=== PATIENT | female | born 1960 | race African-American/Black ===

== ENCOUNTER 2020-02-01 04:58 | Day surgery (SDC) | payer OTHER ==
[2020-01-30 14:21] VITALS: BMI 31.2
[2020-02-01 11:01] VITALS: TEMP 98.7
[2020-02-01 14:28] VITALS: BP 112/52; PULSE 63
--- NOTE | 2020-02-02 13:01 | PATH ---
Surgical Pathology Report Patient Name: ANILA GOLDMAN [facility]. Rec. #: [id number] /Age/Gender: 1960 (Age: 59) / F Account: [id number] Location: [facility]SU-ENDOSCOPY Taken: 02/01/2020 Received: 02/01/2020 Reported: 02/02/2020 Physicians: Long Narayanan D.O. Specimen(s) Received A: PROXIMAL DESCENDING COLON POLYP B: TRANSVERSE COLON POLYP C: RIGHT COLON POLYP D: RECTAL SIGMOID POLYP Clinical History Screening Postoperative diagnosis: Colon polyps, hemorrhoids Final Diagnosis A. PROXIMAL DESCENDING COLON, POLYP, POLYPECTOMY: TUBULAR ADENOMA. B. TRANSVERSE COLON, POLYP, POLYPECTOMY: TUBULAR ADENOMA. C. COLON, RIGHT, POLYP, BIOPSY: TUBULAR ADENOMA. D. RECTOSIGMOID COLON, POLYP, BIOPSY: HYPERPLASTIC POLYP. Electronically Signed Joanne Manuel M.D. Gross Description A. Received in formalin, labeled "proximal descending colon" is a webber, irregular portion of soft tissue measuring 0.6 cm. in greatest dimension. The specimen is submitted in toto in one cassette. B. Received in formalin, labeled "transverse colon polyp" is a webber, irregular portion of soft tissue measuring 0.4 cm. in greatest dimension. The specimen is submitted in toto in one cassette. C. Received in formalin, labeled "right colon polyp biopsy" is a webber, irregular portion of soft tissue measuring 0.4 cm. in greatest dimension. The specimen is submitted in toto in one cassette. D. Received in formalin, labeled "rectosigmoid polyp biopsy" are 2 webber, irregular portions of soft tissue measuring 0.2 and 0.4 cm. in greatest dimension. The specimens are submitted in toto in one cassette. DL/02/01/2020 saudi/02/01/2020
== END 2020-02-01 11:50 | disposition home or self-care (01) ==
LOC: JASU-ENDO 04:58
PROVIDERS: ATTEND Internal Medicine Gastroenterology
PROC: 0DBN8ZX Excision of Sigmoid Colon, Via Natural or Artificial Opening Endoscopic, Diagnostic (ICD-10-PCS; 2020-02-01)
PROC: 0DBM8ZX Excision of Descending Colon, Via Natural or Artificial Opening Endoscopic, Diagnostic (ICD-10-PCS; 2020-02-01)
PROC: 0DBL8ZX Excision of Transverse Colon, Via Natural or Artificial Opening Endoscopic, Diagnostic (ICD-10-PCS; 2020-02-01)
PROC: 0DBF8ZX Excision of Right Large Intestine, Via Natural or Artificial Opening Endoscopic, Diagnostic (ICD-10-PCS; principal; 2020-02-01 10:00)
DX: Z12.11 Encounter for screening for malignant neoplasm of colon (principal); K64.8 Other hemorrhoids; D12.4 Benign neoplasm of descending colon; D12.7 Benign neoplasm of rectosigmoid junction; D12.3 Benign neoplasm of transverse colon
CPT/HCPCS: 88305-TC

== ENCOUNTER 2020-06-25 05:33 | Day surgery (SDC) | payer OTHER ==
[2020-06-25 11:37] VITALS: TEMP 97.8; BMI 30.9
[2020-06-25 14:04] VITALS: PULSE 53
[2020-06-25 14:50] VITALS: BP 144/74
== END 2020-06-25 14:50 | disposition home or self-care (01) ==
LOC: JASU-ENDO 05:33
PROVIDERS: ATTEND Internal Medicine Gastroenterology
PROC: 0DB78ZX Excision of Stomach, Pylorus, Via Natural or Artificial Opening Endoscopic, Diagnostic (ICD-10-PCS; 2020-06-25)
PROC: 0D748ZZ Dilation of Esophagogastric Junction, Via Natural or Artificial Opening Endoscopic (ICD-10-PCS; 2020-06-25)
PROC: 0DB48ZX Excision of Esophagogastric Junction, Via Natural or Artificial Opening Endoscopic, Diagnostic (ICD-10-PCS; principal; 2020-06-25 11:30)
DX: K22.2 Esophageal obstruction (principal); K25.9 Gastric ulcer, unspecified as acute or chronic, without hemorrhage or perforation; K29.70 Gastritis, unspecified, without bleeding; K44.9 Diaphragmatic hernia without obstruction or gangrene; K31.89 Other diseases of stomach and duodenum; E78.00 Pure hypercholesterolemia, unspecified; E66.9 Obesity, unspecified; Z68.30 Body mass index [BMI] 30.0-30.9, adult
CPT/HCPCS: 88305-TC; 88312-TC; 88342-TC

== ENCOUNTER 2021-01-09 04:38 | Day surgery (SDC) | payer OTHER ==
[2021-01-08 12:58] VITALS: BMI 29.7
[2021-01-09 11:30] VITALS: TEMP 97.2
[2021-01-09 12:08] VITALS: BP 123/67; PULSE 61
== END 2021-01-09 12:08 | disposition home or self-care (01) ==
LOC: JASU-ENDO 04:38
PROVIDERS: ATTEND Internal Medicine Gastroenterology
PROC: 0DB48ZX Excision of Esophagogastric Junction, Via Natural or Artificial Opening Endoscopic, Diagnostic (ICD-10-PCS; principal; 2021-01-09 10:30)
DX: K21.9 Gastro-esophageal reflux disease without esophagitis (principal); K44.9 Diaphragmatic hernia without obstruction or gangrene
CPT/HCPCS: 88305-TC

== ENCOUNTER 2023-07-07 12:42 | Emergency (ER) | payer OTHER ==
[2023-07-07 12:47] VITALS: BP 151/75; PULSE 62; RESP 18; TEMP 97.6; BMI 29.2
[2023-07-07] MEDS ORDERED: LIDOCAINE 4% PATCH TP ONE (13:49)
[2023-07-07] MEDS ORDERED: FAMOTIDINE 20 MG/50 ML IVPB 20 MG/50 ML MG IVPB ONE (13:49)
[2023-07-07] MEDS ORDERED: ACETAMINOPHEN INJECTION 100 ML IVPB ONE (13:49)
[2023-07-07] MEDS ORDERED: MAG HYDROX/AL HYDROX/SIMETH 30 ML UNIT-DOSE CUP ONE (13:49)
[2023-07-07 14:02] LABS: BASO % 0.4 % (0-2.0); HEMATOCRIT 38.9 % (32.4-45.2); HEMOGLOBIN 12.9 GM/dL (10.7-15.3); LYMPH % 43.6 % (8-40); MCHC 33.2 g/dl (32.0-36.0); MEAN CELL VOLUME 90.4 fl (80-96); MEAN PLT VOLUME 8.8 fl (7.5-11.1); MONO % 9.8 % (3.8-10.2); NEUT % 45.2 % (42.8-82.8); PLATELET COUNT 213 10^3/uL (134-434); RBC 4.31 M/mm3 (3.60-5.2); RDW 14.9 % (11.6-15.6); WHITE BLOOD COUNT 4.3 K/mm3 (4.0-10.0)
[2023-07-07] MEDS: LIDOCAINE 4% PATCH TP ONE (14:04)
[2023-07-07] MEDS: ACETAMINOPHEN 1000 MG/100 ML BAG IVPB ONE (14:05)
[2023-07-07] MEDS: MAG HYDROX/AL HYDROX/SIMETH 30 ML UNIT-DOSE CUP PO ONE (14:05)
[2023-07-07] MEDS: FAMOTIDINE 20 MG/50 ML IVPB 20 MG/50 ML MG IVPB ONE (14:07)
[2023-07-07 14:42] LABS: POTASSIUM 5.1 mmol/L (3.5-5.1)
[2023-07-07 14:44] LABS: BLOOD UREA NITROGEN 11.1 mg/dL (7-18)
[2023-07-07 14:45] LABS: CALCIUM 9.7 mg/dL (8.5-10.1)
[2023-07-07 14:46] LABS: ALBUMIN 3.9 g/dl (3.4-5.0)
[2023-07-07 14:49] LABS: CREATININE 0.6 mg/dL (0.55-1.3)
[2023-07-07 14:50] LABS: BILIRUBIN,TOTAL 1.1 mg/dL (0.2-1); TOT PROT 7.7 g/dl (6.4-8.2)
[2023-07-07 14:57] LABS: PH,URINE 5.5 (5.0-8.0); URINE APPEARANCE Error; URINE BILIRUBIN NEGATIVE (NEGATIVE); URINE COLOR YELLOW; URINE GLUCOSE (UA) NEGATIVE (NEGATIVE); URINE KETONE NEGATIVE (NEGATIVE); URINE LEUK ESTERASE NEGATIVE (NEGATIVE); URINE NITRITE NEGATIVE (NEGATIVE); URINE PROTEIN NEGATIVE (NEGATIVE); URINE UROBILINOGEN 0.2 mg/dL (0.2-1.0)
[2023-07-07] MEDS ORDERED: LIDOCAINE PATCH REMOVAL MC SCH (22:00)
== END 2023-07-07 18:02 | disposition home or self-care (01) ==
LOC: JER 12:42
PROC: 3E033GC Introduction of Other Therapeutic Substance into Peripheral Vein, Percutaneous Approach (ICD-10-PCS; principal; 2023-07-07)
PROC: 3E033NZ Introduction of Analgesics, Hypnotics, Sedatives into Peripheral Vein, Percutaneous Approach (ICD-10-PCS; 2023-07-07)
DX: R10.11 Right upper quadrant pain (principal); K59.00 Constipation, unspecified
CPT/HCPCS: 36415; 71046-TC-FY; 76705-TC; 80053; 81003; 83605; 83690; 84484; 85025; 87086; 93005; 93010; 99285-25; J0131

== ENCOUNTER 2023-12-16 04:17 | Day surgery (SDC) | payer OTHER ==
[2023-12-14 12:42] VITALS: BMI 30.9
[2023-12-16 09:09] VITALS: TEMP 98
[2023-12-16 09:27] VITALS: BP 123/72; PULSE 53; RESP 18
== END 2023-12-16 09:54 | disposition home or self-care (01) ==
LOC: JASU-ENDO 04:17
PROVIDERS: ATTEND Internal Medicine Gastroenterology
PROC: 0DBL8ZX Excision of Transverse Colon, Via Natural or Artificial Opening Endoscopic, Diagnostic (ICD-10-PCS; 2023-12-16)
PROC: 0DBN8ZX Excision of Sigmoid Colon, Via Natural or Artificial Opening Endoscopic, Diagnostic (ICD-10-PCS; 2023-12-16)
PROC: 0DBH8ZX Excision of Cecum, Via Natural or Artificial Opening Endoscopic, Diagnostic (ICD-10-PCS; 2023-12-16)
PROC: 0DBK8ZX Excision of Ascending Colon, Via Natural or Artificial Opening Endoscopic, Diagnostic (ICD-10-PCS; principal; 2023-12-16 08:00)
DX: Z12.11 Encounter for screening for malignant neoplasm of colon (principal); D12.0 Benign neoplasm of cecum; D12.2 Benign neoplasm of ascending colon; D12.3 Benign neoplasm of transverse colon; K63.5 Polyp of colon; K64.8 Other hemorrhoids; Z86.010 Personal history of colon polyps
CPT/HCPCS: 88305-TC

== ENCOUNTER 2024-02-20 10:30 | Emergency (ER) | payer OTHER ==
[2024-02-20 10:40] VITALS: BP 111/72; PULSE 72; RESP 18; TEMP 97.9; BMI 31.8
[2024-02-20] MEDS ORDERED: IBUPROFEN 600 MG TABLET (FP) PO ONE (12:00)
[2024-02-20] MEDS: IBUPROFEN 600 MG TABLET (FP) PO ONE (12:02)
== END 2024-02-20 12:04 | disposition home or self-care (01) ==
LOC: JER 10:30
DX: S93.492A Sprain of other ligament of left ankle, initial encounter (principal); W18.43XA Slipping, tripping and stumbling without falling due to stepping from one level to another, initial encounter
CPT/HCPCS: 73610-TC-LT-FY; 99283-25